=== PATIENT | male | born 1955 | race African-American/Black ===

== ENCOUNTER 2017-08-27 12:49 | Emergency (ER) | payer OTHER ==
[~2017-08-27] VITALS: Ht 175.3 cm; Wt 130.7 kg
[2017-08-27 12:54] VITALS: TEMP 36.7; Ht 175.3 cm; Wt 130.7 kg
[2017-08-27] MEDS ORDERED: OXYCODONE HCL IR 5 MG TAB (IMMEDIATE RELEASE) PO STA (13:00)
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
[2017-08-27] MEDS ORDERED: OXYC1TAB3 PO (14:51)
[2017-08-27] MEDS ORDERED: CHOL1000 PO (15:04)
[2017-08-27] MEDS ORDERED: ASPI81TA28 PO (15:04)
[2017-08-27] MEDS ORDERED: PRLSR20 PO (15:04)
[2017-08-27] MEDS ORDERED: FURO-85 PO (15:04)
[2017-08-27] MEDS ORDERED: METO25TA56 PO (15:04)
[2017-08-27] MEDS ORDERED: GABA-112 PO (15:04)
[2017-08-27] MEDS ORDERED: VITA400C28 PO (15:04)
[2017-08-27] MEDS ORDERED: ATOR10TA82 PO (15:04)
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
[2017-08-27 17:01] VITALS: BP 147/81; PULSE 87; O2SAT 96
== END 2017-08-27 17:03 | disposition home or self-care (01) ==
LOC: C.EDA 12:54
DX: S70.11XA Contusion of right thigh, initial encounter (principal); S50.812A Abrasion of left forearm, initial encounter; S39.012A Strain of muscle, fascia and tendon of lower back, initial encounter; S16.1XXA Strain of muscle, fascia and tendon at neck level, initial encounter; V58.5XXA Driver of pick-up truck or van injured in noncollision transport accident in traffic accident, initial encounter; Y93.89 Activity, other specified; Y92.488 Other paved roadways as the place of occurrence of the external cause; Z98.1 Arthrodesis status; Z79.82 Long term (current) use of aspirin